=== PATIENT | male | born 1965 | race Two or more races ===

== ENCOUNTER 2023-05-25 07:21 | Emergency (ER) | payer OTHER ==
[~2023-05-25] VITALS: Ht 170.2 cm; Wt 72.0 kg
[2023-05-25 07:59] VITALS: PULSE 90; RESP 17; O2SAT 97
[2023-05-25] MEDS ORDERED: ACETAMINOPHEN 500 MG TAB PO ONE (08:00)
[2023-05-25 08:23] VITALS: BP 155/86; PULSE 78; RESP 18; O2SAT 96
[2023-05-25] MEDS ORDERED: BACL10TA PO (09:14)
[2023-05-25] MEDS ORDERED: NAPR-746 PO (09:14)
== END 2023-05-25 09:22 | disposition home or self-care (01) ==
LOC: ER 07:21 → EDBD 07:21 → ER 09:22
DX: S76.911A Strain of unspecified muscles, fascia and tendons at thigh level, right thigh, initial encounter (principal); S50.12XA Contusion of left forearm, initial encounter; I10 Essential (primary) hypertension; E78.5 Hyperlipidemia, unspecified; V43.52XA Car driver injured in collision with other type car in traffic accident, initial encounter; Y93.89 Activity, other specified; Y92.89 Other specified places as the place of occurrence of the external cause; Y99.8 Other external cause status
CPT/HCPCS: 73090